=== PATIENT | male | born 1965 | race African-American/Black ===

== ENCOUNTER 2024-04-14 18:54 | Inpatient (IN) | payer OTHER ==
[~2024-04-14] VITALS: Ht 160 cm; Wt 100.0 kg
[2024-04-14 18:58] VITALS: O2SAT 98
[2024-04-14] MEDS: ONDANSETRON HCL 4MG/2ML INJ IV ONE (19:20)
[2024-04-14] MEDS: MORPHINE SULFATE 4 MG/ML INJ (FOR IV/IM USE) IV ONE (19:20)
[2024-04-14 20:32] LABS: HEMATOCRIT 38.8 % (42.0-52.0); HEMOGLOBIN 12.9 g/dL (14.0-18.0); MEAN CORPUSCULAR HEMOGLOBIN 30.6 pg (28.0-32.0); MEAN CORPUSCULAR HGB CONC 33.2 g/dL (31.0-37.0); MEAN CORPUSCULAR VOLUME 92.2 fL (80.0-94.0); PLATELET 257 x1000/uL (130-400); RED BLOOD CELL COUNT 4.21 mill/uL (4.7-6.1); RED CELL DISTRIBUTION WIDTH 14.6 % (11.6-14.6)
[2024-04-14 20:38] LABS: CHLORIDE 105 mEq/L (98-107); SODIUM 141 mEq/L (136-145)
[2024-04-14 20:39] LABS: CARBON DIOXIDE 29 mEq/L (21-32)
[2024-04-14 20:44] LABS: CREATININE 1.3 mg/dL (0.6-1.3); GLUCOSE 174 mg/dL (70-105); UREA NITROGEN BLOOD 26 mg/dL (9-23)
[2024-04-14 20:47] LABS: PARTIAL THROMBOPLASTIN TIME 25.6 sec (23.4-31.0); PROTHROMBIN TIME 10.8 sec (9.6-11.0)
[2024-04-14] MEDS ORDERED: HYDROMORPHONE HCL/PF 2MG/ML INJ IV ONE (22:00)
[2024-04-14] MEDS: KETOROLAC 15MG/ML VIAL IV ONE (22:00)
[2024-04-14] MEDS: HYDROMORPHONE HCL/PF 1MG/ML INJ IV SCH (22:07)
[2024-04-14] MEDS ORDERED: LORAZEPAM 0.5MG TABLET PO PRN (22:45)
[2024-04-14] MEDS ORDERED: IPRATROPIUM/ALBUTEROL 0.5-3(2.5)MG/3ML NEB HHN PRN (22:45)
[2024-04-14] MEDS ORDERED: ONDANSETRON HCL 4MG/2ML INJ IV PRN (22:45)
[2024-04-14] MEDS ORDERED: ACETAMINOPHEN 325MG TABLET PO PRN (22:45)
[2024-04-14] MEDS ORDERED: GUAIFENESIN 200MG/10ML SUGAR FREE UDC PO PRN (22:45)
[2024-04-14] MEDS ORDERED: DOCUSATE SODIUM 100MG CAPSULE PO PRN (22:45)
[2024-04-14] MEDS ORDERED: NALOXONE HCL 0.4MG/ML VIAL IV PRN (23:00)
[2024-04-15] MEDS: POTASSIUM CHLORIDE 20MEQ TABLET SR PO NR (01:32)
[2024-04-15 04:00] VITALS: BP 160/110; PULSE 82; RESP 22; TEMP 37.00296; O2SAT 96
[2024-04-15] MEDS: CLONIDINE 0.1MG TABLET PO PRN (04:31)
[2024-04-15] MEDS: ACETAMINOPHEN 325MG TABLET PO PRN (04:47)
[2024-04-15] MEDS: AMLODIPINE 5MG TABLET PO SCH (06:15)
[2024-04-15 08:00] VITALS: BP 110/92; PULSE 83; RESP 18; TEMP 36.44736; O2SAT 94
[2024-04-15 08:56] LABS: HEMATOCRIT 36.1 % (42.0-52.0); HEMOGLOBIN 11.7 g/dL (14.0-18.0); MEAN CORPUSCULAR HEMOGLOBIN 30.2 pg (28.0-32.0); MEAN CORPUSCULAR HGB CONC 32.3 g/dL (31.0-37.0); MEAN CORPUSCULAR VOLUME 93.5 fL (80.0-94.0); PLATELET 233 x1000/uL (130-400); RED BLOOD CELL COUNT 3.86 mill/uL (4.7-6.1); RED CELL DISTRIBUTION WIDTH 14.8 % (11.6-14.6); WHITE BLOOD COUNT 11.3 x1000/uL (4.5-11.0)
[2024-04-15 09:01] LABS: CARBON DIOXIDE 28 mEq/L (21-32); CHLORIDE 104 mEq/L (98-107); POTASSIUM 3.9 mEq/L (3.5-5.1); SODIUM 140 mEq/L (136-145)
[2024-04-15 09:02] LABS: CALCIUM 8.6 mg/dL (8.7-10.4)
[2024-04-15 09:07] LABS: GLUCOSE 152 mg/dL (70-105); UREA NITROGEN BLOOD 29 mg/dL (9-23)
[2024-04-15 09:08] LABS: ALANINE AMINOTRANSFERASE 24 IU/L (10-49); ASPARTATE AMINOTRANSFERASE 38 IU/L (<34); CREATINE KINASE MB FRACTION 8.4 ng/mL (0.5-3.6)
[2024-04-15 09:09] LABS: ALBUMIN 3.8 g/dL (3.2-4.8); BILIRUBIN TOTAL 0.3 mg/dL (0.1-1.0); PHOSPHORUS 3.4 mg/dL (2.5-4.9); TROPONIN I HIGH SENSITIVITY 8 ng/L (3.0-53)
[2024-04-15 09:11] LABS: CREATINE KINASE 995 IU/L (46-171)
[2024-04-15 09:58] LABS: CREATININE 1.7 mg/dL (0.6-1.3)
[2024-04-15] MEDS: ASPIRIN 81MG EC TABLET PO SCH (10:21)
[2024-04-15] MEDS: LOSARTAN 50 MG TABLET PO SCH ×2 (10:22→17:00)
[2024-04-15 12:00] VITALS: BP 145/92; PULSE 77; RESP 16; TEMP 37.05852; O2SAT 97
[2024-04-15] MEDS: MORPHINE SULFATE 2 MG/ML INJ (NOT FOR IM USE) IV PRN (12:30)
[2024-04-15 16:00] VITALS: BP 127/94; PULSE 77; RESP 19; TEMP 36.83628; O2SAT 98
[2024-04-15] MEDS ORDERED: AMLODIPINE 10MG TABLET PO SCH (17:00)
[2024-04-15] MEDS: AMLODIPINE 5MG TABLET PO NR (17:00)
[2024-04-15 19:11] LABS: CREATINE KINASE MB FRACTION 9.8 ng/mL (0.5-3.6)
[2024-04-15] MEDS ORDERED: FAMOTIDINE 20MG TABLET PO SCH (21:00)
[2024-04-16] MEDS ORDERED: AMLODIPINE 10MG TABLET PO SCH (09:00)
== END 2024-04-15 19:50 | disposition left against medical advice (07) | DRG 563 ==
LOC: ER 18:54 → 5WST 21:31
PROVIDERS: ADMIT Internal Medicine; ATTEND Internal Medicine
PROC: 2W3MX1Z Immobilization of Left Lower Extremity using Splint (ICD-10-PCS; principal; 2024-04-14)
DX: S82.492A Other fracture of shaft of left fibula, initial encounter for closed fracture (principal); E87.6 Hypokalemia; S82.872A Displaced pilon fracture of left tibia, initial encounter for closed fracture; I10 Essential (primary) hypertension; M43.16 Spondylolisthesis, lumbar region; F17.210 Nicotine dependence, cigarettes, uncomplicated; Z53.29 Procedure and treatment not carried out because of patient's decision for other reasons; X58.XXXA Exposure to other specified factors, initial encounter; Y99.8 Other external cause status; Y93.89 Activity, other specified; Y92.89 Other specified places as the place of occurrence of the external cause
CPT/HCPCS: 36415; 71250; 73552; 73590; 73700; 74176; 80048; 80053; 82550; 82553; 83036; 83735; 84100; 84484; 85027; 86850; 86900; 93005; 99285; J1171; J1885; J2270; J2405